=== PATIENT | male | born 2000 | race Caucasian/White ===

== ENCOUNTER 2019-09-23 19:25 | Emergency (ER) | payer OTHER ==
[~2019-09-23] VITALS: Ht 175.3 cm; Wt 53.9 kg
--- NOTE | 2019-09-23 20:17 | NUR ---
THIS IS A 19 YO MALE C/O INTERMITTENT MIGRAINES/CP X 1 WEEK. PT AO X 4. SKIN PWD. RESP EVEN AND UNLABORED. PT C/O N/V ALL DAY, BUT ALSO REPORTS DRINKING LAST NOC. PT UNSURE IF THE N/V IS RELATED TO DRINKING OR THE VO AND CP. PT CURRENTLY RATES CP AT 5/10 AND DESCRIBES THE PAIN "PRESSURE". PT NST 110'S ON BUTCHER HELPER. PARENTS AT BEDSIDE. CALL LIGHT WITHIN REACH. WILL CONT TO MONITOR PT.
[2019-09-23] MEDS ORDERED: ASPIRIN 81 MG TABLET CHEW PO ONE (20:30)
[2019-09-23] MEDS ORDERED: MORPHINE SULFATE 4 MG/ML, 1ML IVPush PRN (20:30)
[2019-09-23] MEDS ORDERED: ONDANSETRON 2MG/ML, 2ML IVPush ONE (20:30)
[2019-09-23] MEDS ORDERED: MORPHINE SULFATE 4 MG/ML, 1ML ONE (21:10)
[2019-09-23] MEDS ORDERED: ASPIRIN 81 MG TABLET CHEW ONE (21:10)
[2019-09-23] MEDS ORDERED: ONDANSETRON 2MG/ML, 2ML ONE (21:10)
--- NOTE | 2019-09-23 21:22 | NUR ---
PT MEDICATED ORDERED FOR 01/31 VO AND /10 CP. PT AO X 4. SKIN PWD. RESP EVEN AND UNLABORED. FAMILY AT BEDSIDE. PT AND FAMILY AWARE WE ARE WAITING FOR LAB/IMAGING RESULTS. CALL LIGHT WITHIN REACH. WILL CONT TO MONITOR PT.
[2019-09-23] MEDS ORDERED: SODIUM CHLORIDE 0.9% 1,000ML IVBOLUS ONE (21:30)
[2019-09-23 21:50] LABS: BASOPHILS # (AUTO) 0.01 x10^3/uL (0-0.1); BASOPHILS % (AUTO) 0 % (0-1); EOSINOPHILS % (AUTO) 0 % (1-7); LYMPHOCYTES # (AUTO) 0.66 x10^3/uL (1-3.4); LYMPHOCYTES % (AUTO) 5 % (22-44); MD NO; MEAN CORPUSCULAR HEMOGLOBIN 31.5 pg (27.5-34.5); MEAN CORPUSCULAR HGB CONC 34.4 g/dL (33.2-36.2); MEAN CORPUSCULAR VOLUME 91.6 fL (81-97); MEAN PLATELET VOLUME 7.3 fL (7.4-10.4); MONOCYTES # (AUTO) 0.38 x10^3/uL (0.2-0.8); MONOCYTES % (AUTO) 3 % (2-9); NEUTROPHILS # (AUTO) 11.54 x10^3/uL (1.8-6.8); NEUTROPHILS % (AUTO) 92 % (42-75); PLATELET COUNT 328 x10^3/uL (130-400); RED BLOOD COUNT 5.12 x10^6/uL (4.38-5.82); RED CELL DISTRIBUTION WIDTH 12.8 % (9.4-14.8)
--- NOTE | 2019-09-23 21:53 | NUR ---
PT CURRENTLY RESTING ON GURNEY. NAD NOTED. SKIN PWD. RESP EVEN AND UNLABORED. PT REPORTS PAIN IS NOW TOLERABLE AND "MUCH BETTER" AT 2/10. FAMILY AT BEDSIDE. PT AND FAMILY AWARE THAT THEY ARE WAITING FOR LAB RESULTS. CALL LIGHT WITHIN REACH. WILL CONT TO MONITOR PT.
[2019-09-23 21:54] LABS: ALBUMIN 4.9 g/dL (3.4-5.0); CALCIUM 9.6 mg/dL (8.5-10.1); CREATININE 1.18 mg/dL (0.7-1.3)
[2019-09-23 21:57] LABS: TROPONIN I < 0.015 ng/mL (0.000-0.045)
[2019-09-23 22:02] LABS: ANION GAP 16 mmol/L (5-15); CHLORIDE 106 mmol/L (98-107)
--- NOTE | 2019-09-23 22:05 | NUR ---
REPORT TO OSMEL LARRY WHO ASSUMED CARE OF PT.
[2019-09-23 22:57] VITALS: BP 121/73
== END 2019-09-23 23:01 | disposition home or self-care (01) ==
LOC: ED 22:54
DX: G43.909 Migraine, unspecified, not intractable, without status migrainosus (principal); R07.89 Other chest pain; H53.149 Visual discomfort, unspecified; R00.0 Tachycardia, unspecified; F10.129 Alcohol abuse with intoxication, unspecified; Y90.9 Presence of alcohol in blood, level not specified
CPT/HCPCS: 36415; 71045; 80048; 82040; 84484; 85025; 93005; 96374; 96375; 99284; J2270; J2405